=== PATIENT | female | born 1960 | race Caucasian/White ===

== ENCOUNTER → 2017-05-19 | Outpatient (CLI) | payer BC | LOC: KOH-I 12:59 | DX: R31.9 Hematuria, unspecified (principal); R50.9 Fever, unspecified; R10.9 Unspecified abdominal pain; R11.0 Nausea; N20.0 Calculus of kidney; R91.8 Other nonspecific abnormal finding of lung field | CPT/HCPCS: 74176 ==

== ENCOUNTER → 2017-08-12 | Outpatient (CLI) | payer BC | LOC: KOH-I 12:28 | DX: M54.16 Radiculopathy, lumbar region (principal); M53.3 Sacrococcygeal disorders, not elsewhere classified; M51.16 Intervertebral disc disorders with radiculopathy, lumbar region; M51.17 Intervertebral disc disorders with radiculopathy, lumbosacral region | CPT/HCPCS: 72148 ==

== ENCOUNTER → 2021-09-22 | Outpatient (CLI) | payer BC, OTHER | LOC: KOH-I 10:23 | DX: J20.9 Acute bronchitis, unspecified (principal); R91.8 Other nonspecific abnormal finding of lung field | CPT/HCPCS: 71046 ==

== ENCOUNTER → 2022-03-27 | Outpatient (CLI) | payer BC, OTHER | LOC: MAMO 03-17 15:00 | DX: Z12.31 Encounter for screening mammogram for malignant neoplasm of breast (principal) | CPT/HCPCS: 77063; 77067 ==

== ENCOUNTER 2022-04-26 17:04 | Emergency (ER) | payer BC, OTHER | END 2022-04-26 20:24 | disposition home or self-care (01) | LOC: ER1 17:04 | DX: S86.912A Strain of unspecified muscle(s) and tendon(s) at lower leg level, left leg, initial encounter (principal); M25.552 Pain in left hip; E11.9 Type 2 diabetes mellitus without complications; I10 Essential (primary) hypertension; Z79.4 Long term (current) use of insulin; X50.1XXA Overexertion from prolonged static or awkward postures, initial encounter | CPT/HCPCS: 73552; 73560; 73590; 96372; 99283; J1885 ==

== ENCOUNTER → 2022-05-18 | Outpatient (CLI) | payer BC, OTHER | LOC: KOH-I 14:30 | DX: S83.232A Complex tear of medial meniscus, current injury, left knee, initial encounter (principal); S83.105A Unspecified dislocation of left knee, initial encounter; X58.XXXA Exposure to other specified factors, initial encounter | CPT/HCPCS: 73721 ==

== ENCOUNTER → 2022-06-30 | Outpatient (CLI) | payer BC, OTHER ==
[~2022-06-30] MED LIST: HYDROCHLOROTHIA25 MG PO; OZEMPIC1 MG/0.71 SC; TRESIBA FL100 UNIT/1 SC; VITAMIN B12 IM; VITAMIN D21250 MCG PO
[2022-06-30 09:49] LABS: HEMOGLOBIN 13.7 gm/dl (12.3-15.3); RED BLOOD COUNT 4.4 M/UL (4.00-5.10); WHITE BLOOD COUNT 5.3 K/UL (4.5-11.0)
[2022-06-30 10:10] LABS: BUN/CREATININE RATIO 12 (0-10)
== END ==
LOC: OPSV2 06-29 08:00
PROVIDERS: Orthopaedic Surgery
DX: Z01.818 Encounter for other preprocedural examination (principal); S83.242A Other tear of medial meniscus, current injury, left knee, initial encounter
CPT/HCPCS: 36415; 80048; 83036; 85025; 93005

== ENCOUNTER → 2022-07-07 | Day surgery (SDC) | payer BC, OTHER ==
[~2022-07-07] MED LIST changes: +HYDROCODON-ACE1 EAC2 PO
== END | disposition home or self-care (01) ==
LOC: OR 05:22
DX: S83.242A Other tear of medial meniscus, current injury, left knee, initial encounter (principal); M22.42 Chondromalacia patellae, left knee; X50.1XXA Overexertion from prolonged static or awkward postures, initial encounter; I10 Essential (primary) hypertension; E78.5 Hyperlipidemia, unspecified; K21.9 Gastro-esophageal reflux disease without esophagitis; E11.9 Type 2 diabetes mellitus without complications; Z79.4 Long term (current) use of insulin; Z79.899 Other long term (current) drug therapy
CPT/HCPCS: 82962; J0171; J0690; J2001; J2250; J2405; J2704; J3010